=== PATIENT | male | born 1965 | race Caucasian/White ===

== ENCOUNTER 2020-12-17 10:12 | Emergency (ER) | payer OTHER ==
[~2020-12-17] VITALS: Ht 175.3 cm; Wt 85.4 kg
--- NOTE | 2020-12-17 10:48 | NUR ---
PT WAS DOING HIS PATIO WITH [facility], ABOUT 2 DAYS AGO AND HE WENT THROUGH A PUDDLE OF IT WITH HIS SHOES ON. IN APPROX 30 MINUTES, HE NOTICED BURNING. HE WASHED IT OFF, HAS CHEMICAL MOORE FROM IT AND SWELLING. HE HAS BEEN SOAKING IT, PLACING NEOSPORIN ON IT AND ELEVATING IT.
[2020-12-17] MEDS ORDERED: SILVER SULF. CRM 1% , 25GM TP ONE (11:00)
[2020-12-17] MEDS ORDERED: DIPH,PERTUSS(ACELL),TET VAC/PF 0.5 ML IM-VACC ONE ×2 (11:00→11:10)
[2020-12-17] MEDS ORDERED: SILVER SULF. CRM 1% , 25GM ONE (11:10)
--- NOTE | 2020-12-17 11:28 | NUR ---
EMT BEDSIDE DOING DRESSING CHANGE
[2020-12-17 12:24] VITALS: BP 146/96
== END 2020-12-17 12:42 | disposition home or self-care (01) ==
LOC: ED 12:35
DX: T25.222A Burn of second degree of left foot, initial encounter (principal); T25.221A Burn of second degree of right foot, initial encounter; T31.0 Burns involving less than 10% of body surface; X58.XXXA Exposure to other specified factors, initial encounter; Y93.89 Activity, other specified; Y92.89 Other specified places as the place of occurrence of the external cause; Y99.8 Other external cause status
CPT/HCPCS: 16020; 90471; 90715; 99283